=== PATIENT | male | born 1985 | race Two or more races ===

== ENCOUNTER 2017-02-10 21:48 | Emergency (ER) | payer MEDICAID ==
[2017-02-10] MEDS ORDERED: DIPHTH,PERTUSS(ACELL),TET VAC 0.5 ML VIAL IM V ONE (22:23)
== END 2017-02-10 23:43 | disposition home or self-care (01) ==
LOC: ED 21:48
DX: S51.811A Laceration without foreign body of right forearm, initial encounter (principal); F10.129 Alcohol abuse with intoxication, unspecified; Z23 Encounter for immunization; W01.118A Fall on same level from slipping, tripping and stumbling with subsequent striking against other sharp object, initial encounter; Y93.01 Activity, walking, marching and hiking; Y92.9 Unspecified place or not applicable

== ENCOUNTER 2017-02-20 22:19 | Emergency (ER) | payer MEDICAID | END 2017-02-21 00:27 | disposition home or self-care (01) | LOC: ED 22:19 | DX: S51.819D Laceration without foreign body of unspecified forearm, subsequent encounter (principal); W19.XXXD Unspecified fall, subsequent encounter; Y92.9 Unspecified place or not applicable ==